=== PATIENT | female | born 1960 | race Caucasian/White ===

== ENCOUNTER → 2018-08-25 | Outpatient (CLI) | payer BC ==
[~2018-08-25] MED LIST: ATARAX PO; ATORVASTATIN CA20 MG PO; CYMBALTA60 MG PO; LASIX20 MG PO; LISINOPRIL5 MG PO; NOVOLOG MI100 UNIT/1 SQ; TYLENOL EXTRA500 MG
--- NOTE | 2018-08-25 12:06 | Diagnostic Imaging Report ---
PROCEDURE: Frontal and lateral views of the chest. COMPARISON: None. INDICATIONS: cough FINDINGS: Lines/tubes: None. Lungs: The lungs are well inflated and clear. There is no evidence of pneumonia or pulmonary edema. Pleura: There is no pleural effusion or pneumothorax. Heart and mediastinum: The cardiomediastinal silhouette is unremarkable. Bones: No acute bony abnormality. Upper abdomen: Clips project over the right upper quadrant. IMPRESSION: No acute radiographic abnormality. Dictated by: JENNIFER ZAMBRANO M.D. on 08/25/2018 at 12:16 Electronically approved by: JENNIFER ZAMBRANO M.D. on 08/25/2018 at 12:16
--- NOTE | 2018-09-01 08:27 | Diagnostic Imaging Report ---
#[id number] - MGSCRBIL #BILATERAL DIGITAL SCREENING MAMMOGRAM WITH CAD: 08/25/2018 CLINICAL: Routine screening. Comparison is made to exams dated: 08/19/2017 mammogram - [facility] and 08/03/2015 mammogram - [facility]. Current study contains 4 films. There are scattered fibroglandular elements in both breasts. Current study was also evaluated with a Computer Aided Detection (CAD) system. There are benign calcifications in both breasts. No significant masses, calcifications, or other findings are seen in either breast. There has been no significant interval change. IMPRESSION: BENIGN There is no mammographic evidence of malignancy. A 1 year screening mammogram is recommended. The patient will be notified by letter of the results. Oswaldo mckenna/luiz:08/31/2018 16:06:34 Wireless Team Member: Maria BYRNES([place])(M), [facility] letter sent: Compared to Prior B9 Mammogram BI-RADS: 2 Benign
== END ==
LOC: MAMMO 10:07
PROVIDERS: ATTEND Internal Medicine
DX: Z12.31 Encounter for screening mammogram for malignant neoplasm of breast (principal); R05 Cough
CPT/HCPCS: 71046; 77067

== ENCOUNTER → 2019-08-04 | Outpatient (CLI) | payer BC | LOC: MAMMO 09:30 | PROVIDERS: ATTEND Internal Medicine | DX: Z12.31 Encounter for screening mammogram for malignant neoplasm of breast (principal) | CPT/HCPCS: 77067 ==

== ENCOUNTER → 2020-07-13 | Outpatient (CLI) | payer BC ==
--- NOTE | 2020-07-13 16:37 | Diagnostic Imaging Report ---
EXAM: BONE MINERAL DENSITY HISTORY: Menopausal state COMPARISON: None DISCUSSION: Evaluation of the left hip and lumbar spine was performed utilizing DEXA Hologic bone densitometer. The study is technically adequate. The patient's fracture risk is compared to an age-matched control. The patient denies prior surgery/fracture of the spine, hips or forearm. Left hip femoral neck bone mineral density: 0.773 g/cm2, T-score is -0.7, Z-score is 0.6. Left hip total bone mineral density: 0.916 g/cm2, T-score is -0.2, Z-score is 0.7. Lumbar spine total bone mineral density: 1.176 gm/cm2, T-score is 1.2, Z-score is 2.6. Impression: Bone mineralization by WHO Classification is normal, the fracture risk is not increased. Signed by: Dr. Yonny Serna M.D. on 07/13/2020 4:34 PM
== END ==
LOC: MAMMO 13:55
PROVIDERS: ATTEND Internal Medicine
DX: Z12.31 Encounter for screening mammogram for malignant neoplasm of breast (principal); Z78.0 Asymptomatic menopausal state
CPT/HCPCS: 77067; 77080

== ENCOUNTER → 2021-07-12 | Outpatient (CLI) | payer BC | LOC: MAMMO 09:34 | PROVIDERS: ATTEND Internal Medicine | DX: N64.4 Mastodynia (principal) | CPT/HCPCS: 77066 ==

== ENCOUNTER → 2022-07-15 | Outpatient (CLI) | payer BC | LOC: MAMMO 09:34 | PROVIDERS: ATTEND Internal Medicine | DX: Z12.31 Encounter for screening mammogram for malignant neoplasm of breast (principal) | CPT/HCPCS: 77067 ==

== ENCOUNTER 2024-07-13 10:12 | Outpatient (RCR) | payer BC | END 2024-07-22 | LOC: ST 10:12 | PROVIDERS: ATTEND Otolaryngology | DX: R49.0 Dysphonia (principal) ==